=== PATIENT | female | born 1970 | race Caucasian/White ===

== ENCOUNTER → 2017-07-22 | Outpatient (CLI) | payer BC ==
[2017-07-22 12:27] LABS: ALBUMIN 3.8 gm/dl (3.4-5.0); AST/SGOT 25 U/L (15-37); BLOOD UREA NITROGEN 10 mg/dl (7-18); CALCIUM 8.5 mg/dl (8.5-10.1); CARBON DIOXIDE 30 mmol/L (21-32); CREATININE 0.61 mg/dl (0.60-1.20); GLUCOSE 102 mg/dl (70-99); POTASSIUM 3.8 mmol/L (3.5-5.1); SODIUM 136 mmol/L (136-145)
[2017-07-22 12:33] LABS: ALKALINE PHOSPHATASE 63 U/L (45-117); ALT/SGPT 41 U/L (12-78); CHOLESTEROL 205 mg/dl (0-200); LDL CHOLESTEROL CALCULATED 132 mg/dl; TOTAL PROTEIN 7.7 gm/dl (6.4-8.2)
== END | disposition home or self-care (01) ==
LOC: C.LAB1850 10:59
PROVIDERS: ATTEND Internal Medicine Cardiovascular Disease
DX: E78.5 Hyperlipidemia, unspecified (principal)

== ENCOUNTER → 2017-10-07 | Outpatient (CLI) | payer BC ==
[2017-10-08 07:24] LABS: HEMOGLOBIN A1C 5.3 % (4.5-5.6)
== END | disposition home or self-care (01) ==
LOC: C.LAB1850 12:59
PROVIDERS: ATTEND Internal Medicine Cardiovascular Disease
DX: R73.01 Impaired fasting glucose (principal)

== ENCOUNTER → 2018-01-25 | Outpatient (CLI) | payer BC ==
[~2018-01-25] MED LIST: CRS/10 PO; DULO60CA44 PO; POTA1080 PO; SPIR50TA2 PO
--- NOTE | 2018-01-25 13:16 | DIAGNOSTIC IMAGING REPORT ---
TWO VIEW CHEST CLINICAL HISTORY: Preoperative examination. Nephrolithiasis. FINDINGS: PA and lateral chest radiographs are obtained. No prior studies are available for comparison at the time of dictation. The cardiomediastinal silhouette is unremarkable. The lungs and pleural spaces are clear. There is no pneumothorax. The bony thorax appears intact. IMPRESSION: No active disease in the chest. Electronically signed by: Keyshawn Maldonado M.D. 01/25/2018 1:15 PM Dictated Date/Time: 01/25/2018 1:15 PM
[2018-01-25 14:47] LABS: BASO % 0.4 %; BASO ABS # 0.03 K/uL (0-0.2); EOS % 2.4 %; EOS ABS # 0.18 K/uL (0-0.5); HEMATOCRIT 43.5 % (37-47); IG# 0.01 K/uL (0.00-0.02); LYMPH % 26.4 %; LYMPH ABS # 1.97 K/uL (1.2-3.4); MEAN CORPUSCULAR HEMOGLOBIN 31.4 pg (25-34); MEAN CORPUSCULAR HGB CONC 34.5 g/dl (32-36); MONO % 7.5 %; MONO ABS # 0.56 K/uL (0.11-0.59); NEUT % 63.2 %; PLATELET COUNT 292 K/uL (130-400); RED CELL DISTRIBUTION WIDTH CV 12.4 % (11.5-14.5); RED CELL DISTRIBUTION WIDTH SD 41.2 fL (36.4-46.3); WHITE BLOOD COUNT 7.45 K/uL (4.8-10.8)
[2018-01-25 15:09] LABS: BLOOD UREA NITROGEN 9 mg/dl (7-18); CARBON DIOXIDE 31 mmol/L (21-32); CREATININE 0.65 mg/dl (0.60-1.20); POTASSIUM 4.1 mmol/L (3.5-5.1); SODIUM 136 mmol/L (136-145)
== END | disposition home or self-care (01) ==
LOC: C.CPL 12:38
PROVIDERS: ATTEND Urology
DX: N20.0 Calculus of kidney (principal)

== ENCOUNTER → 2018-01-26 | Outpatient (CLI) | payer BC ==
--- NOTE | 2018-01-26 17:48 | DIAGNOSTIC IMAGING REPORT ---
KUB CLINICAL HISTORY: Nephrolithiasis. FINDINGS: 2 AP supine abdominal radiographs are obtained. No prior studies are available for comparison at the time of dictation. There is a nonobstructed abdominal bowel gas pattern noting moderate to severe colonic fecal retention. There is no clear radiographic evidence of nephrolithiasis on today's examination. Numerous pelvic calcifications are typical in appearance for phleboliths. The bony structures appear intact. IMPRESSION: 1. There is no clear radiographic evidence of nephrolithiasis on today's examination. 2. Moderate to severe constipation. Electronically signed by: Keyshawn Maldonado M.D. 01/26/2018 5:46 PM Dictated Date/Time: 01/26/2018 5:45 PM
== END | disposition home or self-care (01) ==
LOC: C.RAD 17:24
PROVIDERS: ATTEND Urology
DX: N20.0 Calculus of kidney (principal); K59.00 Constipation, unspecified

== ENCOUNTER → 2018-01-27 | Day surgery (SDC) | payer BC ==
[2018-01-26 13:33] VITALS: Ht 163.8 cm; Wt 74.1 kg
[~2018-01-27] VITALS: Ht 163.8 cm; Wt 74.1 kg
[~2018-01-27] MED LIST changes: +CIPROFLOXACIN 400MG / D5W IV SCH; +DEXAMETHASONE SOD INJ 4 MG/ML VIAL ONE; +FENTANYL CITRATE INJ 50 MCG/1 ML 2 ML VIAL ONE; +IBUPROFEN 200 MG TAB ONE; +IBUPROFEN 200 MG TAB PO ONE; +LACTATED RINGER'S 1000ML 1,000 ML IV SCH; +LIDOCAINE HCL 2% 2 ML VIAL (20MG/ML) ONE; +MIDAZOLAM HCL 1 MG/ML 2ML VIAL ONE; +NURSING VERBAL MED ORDER ONE; +ONDANSETRON INJ 2 MG/ML 2 ML VIAL ONE; +PROPOFOL IV EMULSION 10 MG/ML 20 ML VIAL ONE
--- NOTE | 2018-01-27 06:59 | History & Physical Bridge Note ---
H&P Re-Evaluation Bridge Note: I have examined the patient, reviewed the History & Physical and in the interval since the performance of the History & Physical I have noted the following changes of clinical significance: No changes noted
--- NOTE | 2018-01-27 07:19 | Progress Note ---
Progress Note Date of Service Jan 27, 2018. Progress Note Unable to visualize stone on KUB or under fluoro - surgery cancelled - add pot citrate, plan for f/u with Dr. Cerda
[2018-01-27 07:20] VITALS: BP 110/72; PULSE 62; TEMP 36.5; O2SAT 98
--- NOTE | 2018-01-27 07:23 | Discharge Instructions ---
Discharge Instructions Date of Service Jan 27, 2018. Admission Reason for Admission: Stones Discharge Discharge Diagnosis / Problem: stones Discharge Goals Goal(s): Decrease discomfort, Improve function, Increase independence, Improve disease control Activity Recommendations Activity Limitations: resume your previous activity Lifting Limitations: none Exercise/Sports Limitations: none May Resume Sexual Activity: when tolerated Shower/Bathe: no limitations Driving or Machine Use: no limitations . Instructions / Follow-Up Instructions / Follow-Up Dr. Cerda office will contact you to schedule follow up Current Hospital Diet Patient's current hospital diet: Discharge Diet Recommended Diet: Regular Diet Pending Studies Studies pending at discharge: no Medical Emergencies . Who to Call and When: Medical Emergencies: If at any time you feel your situation is an emergency, please call 911 immediately. . Non-Emergent Contact Non-Emergency issues call your: Urologist Call Non-Emergent contact if: you have a fever, temperature is above 101.5, your pain is not controlled, your pain is worsening . . "Provider Documentation" section prepared by Prieto Mac. .
--- NOTE | 2018-02-01 12:54 | [facility] Operative Report ---
Operative Report Operative Date Feb 01, 2018. Pre-Operative Diagnosis Kidney stone Post-Operative Diagnosis Kidney stone Procedure(s) Performed Fluoroscopic examination of kidneys/ureter Surgeon Alessandro Estimated Blood Loss 0cc Drains None Anesthesia Type None Complication(s) none Disposition yes Recovery Room / PACU Description of Procedure Pt was identified in the preoperative holding area, appropriate informed consents reviewed and completed and she was transported to the operating suite. Of note, perioperative imaging revealed a stone, however this was most visible on CT rather than traditional KUB. On KUB I could not appreciate the stone we elected to bring her into the operating suite to perform fluoroscopic evaluation before putting her under general anesthesia. Upon arrival in the room, she was placed on the examining table and fluoroscopic evaluation conducted. Despite efforts to angle the treatment and fluoroscopy heads to avoid superimposition of the stone over bone, we are unable to identify a stone adequately to justify treatment. Evaluation was conducted from the kidney down to the bladder before electing to abort any further treatment of the stone. After the fluoroscopic evaluation, she was taken to the recovery room and discharged home in stable condition I attest to the content of the Intraoperative Record and any orders documented therein. Any exceptions are noted below.
== END | disposition home or self-care (01) ==
LOC: X.SURG 06:14
PROVIDERS: ATTEND Urology
DX: N20.0 Calculus of kidney (principal); Z53.8 Procedure and treatment not carried out for other reasons; E78.5 Hyperlipidemia, unspecified; D23.9 Other benign neoplasm of skin, unspecified; Z88.2 Allergy status to sulfonamides